=== PATIENT | female | born 1950 | race Caucasian/White ===

== ENCOUNTER 2021-04-07 15:22 | Emergency (ER) | payer OTHER ==
--- NOTE | 2021-04-07 17:00 | EDM.PDOC ---
ED HPI GENERAL MEDICAL PROBLEM - General Chief Complaint: Chest Pain Stated Complaint: CHEST PAIN STARTED YESTERDAY Time Seen by Provider: 04/07/21 16:45 Source of Information: Reports: Patient. Denies: Old Records History Limitations: Reports: Other (no old records) - History of Present Illness INITIAL COMMENTS - FREE TEXT/NARRATIVE: 70 yo female here with greater than 24 hrs of vague heaviness in her chest and some pain to the R posterior shoulder. Denies a hx of CAD or exertion. No SOB or nausea. Sx's less severe, but still present upon arrival. [place]. No nausea or diaphoresis. Not related to eating. No missed dosages of her meds. Today's BP is higher than her norm. Is a non-smoker. Onset: Gradual Onset Date: 04/06/21 Onset Time: 08:00 Duration: Day(s): (1.5), Waxing/Waning Location: Reports: Chest, Back Quality: Reports: Dull Severity: Mild Improves with: Reports: None Worsens with: Reports: None Context: Reports: Other (See HPI) Associated Symptoms: Reports: Chest Pain. Denies: Cough, Diaphoresis, Fever/Chills, Nausea/Vomiting, Shortness of Breath, Syncope Treatments [employer]: Reports: Other (see below) (none) Chest Pain Score (Numeric/FACES): 2 - Related Data Allergies Allergy/AdvReac Type Severity Reaction Status Date / Time amoxicillin Allergy Rash Verified 04/07/21 16:00 codeine Allergy Rash Verified 04/07/21 16:01 Home Meds: Home Meds Hydroxychloroquine [Plaquenil] 200 mg PO DAILY 04/07/21 [History] Losartan/Hydrochlorothiazide [Losartan-HCTZ 50-12.5 MG] 1 mg PO DAILY 04/07/21 [History] Past Medical History HEENT History: Reports: Impaired Vision Musculoskeletal History: Reports: Arthritis Social & Family History - Tobacco Use Tobacco Use Status *Q: Never Tobacco User - Caffeine Use Caffeine Use: Reports: Coffee - Alcohol Use Number of Drinks Per Day: 1 ED ROS GENERAL - Review of Systems Review Of Systems: See Below Constitutional: Reports: No Symptoms HEENT: Reports: No Symptoms Respiratory: Reports: No Symptoms Cardiovascular: Reports: No Symptoms GI/Abdominal: Reports: No Symptoms : Reports: No Symptoms Musculoskeletal: Reports: Back Pain (R upper) Skin: Reports: No Symptoms Neurological: Reports: No Symptoms Psychiatric: Reports: No Symptoms ED EXAM, GENERAL - Physical Exam Exam: See Below Exam Limited By: No Limitations General Appearance: Alert, WD/WN, No Apparent Distress Eye Exam: Right Eye: Other, Bilateral Eye: Normal Inspection Ears: Normal External Exam, Normal Canal, Hearing Grossly Normal Ear Exam: Bilateral Ear: Auricle Normal, Canal Normal Nose: Normal Inspection, No Blood Throat/Mouth: Normal Inspection, Normal Lips, Normal Oropharynx, Normal Voice, No Airway Compromise Head: Atraumatic, Normocephalic Neck: Normal Inspection, Tender Lateral (R post/lateral neck pain) Respiratory/Chest: No Respiratory Distress, Lungs Clear, Normal Breath Sounds, No Accessory Muscle Use, Chest Non-Tender Cardiovascular: Regular Rate, Rhythm, No Edema GI/Abdominal: Normal Bowel Sounds, Soft, Non-Tender, No Distention Back Exam: Normal Inspection, Other (tender on palpation between the R shoulder blade and the spine. ). No: CVA Tenderness (R), CVA Tenderness (L) Extremities: Normal Inspection, Normal Range of Motion, Non-Tender, No Pedal Edema Neurological: Alert, Oriented, CN II-XII Intact, Normal Cognition, No Motor/Sensory Deficits Psychiatric: Normal Affect, Normal Mood Skin Exam: Warm, Dry, Intact, Normal Color, No Rash #1 Interpretation EKG Date: 04/07/21 Time: 16:25 Rhythm: NSR Rate (Beats/Min): 63 [place]: Normal P-Wave: Present QRS: Normal ST-T: Normal QT: Normal Comparison: NA - No Prior EKG Course - Vital Signs Last Recorded V/S: Last Vital Signs Temp 36.2 C 04/07/21 16:15 Pulse 61 04/07/21 16:44 Resp 13 04/07/21 16:44 BP 156/73 H 04/07/21 16:44 Pulse Ox 98 04/07/21 16:44 - Orders/Labs/Meds Orders: Active Orders 24 hr Category Date Time Status Cardiac Monitoring [RC] .As Directed Care 04/07/21 16:10 Active EKG Documentation Completion [RC] ASDIRECTED Care 04/07/21 16:10 Active Chest 2V [CR] Stat Exams 04/07/21 17:00 Taken EKG 12 Lead [EK] Routine Ther 04/07/21 16:10 Ordered Labs: Laboratory Tests 04/07/21 04/07/21 Range/Units 15:51 15:51 D-Dimer, Quantitative 386.38 (0.0-500.0) ng/mL Troponin I < 0.017 (0.000-0.056) ng/mL - Radiology Interpretation Free Text/Narrative:: CXR-neg Departure - Departure Time of Disposition: 17:43 Disposition: Home, Self-Care 01 Condition: Good Clinical Impression: Nonspecific chest pain, Muscle pain Instructions: Nonspecific Chest Pain, Adult, [id number] Referrals: PCP,None [Primary Care Provider] - Forms: ED Department Discharge Additional Instructions: Take acetaminophen up to 1000 mg every 6 hrs for pain relief. Have someone massage Tr-Nettles or a similar product on the area between your right shoulder blade and your spine a couple times a day until the problem resolves and to the right side of the back of your neck. Continue your usual medications. Return as needed. Sepsis Event Note (ED) - Evaluation Sepsis Screening Result: No Definite Risk - Focused Exam Vital Signs: Vital Signs Temp Pulse Resp BP Pulse Ox 04/07/21 16:44 61 13 156/73 H 98 04/07/21 16:15 36.2 C 63 18 168/91 H 97 04/07/21 15:54 36.2 C 73 18 174/73 H 04/07/21 15:36 36.5 C 73 12 174/73 H 96 - My Orders Last 24 Hours: My Active Orders 04/07/21 16:10 Cardiac Monitoring [RC] .As Directed EKG Documentation Completion [RC] ASDIRECTED EKG 12 Lead [EK] Routine 04/07/21 17:00 Chest 2V [CR] Stat - Assessment/Plan Last 24 Hours: My Active Orders 04/07/21 16:10 Cardiac Monitoring [RC] .As Directed EKG Documentation Completion [RC] ASDIRECTED EKG 12 Lead [EK] Routine 04/07/21 17:00 Chest 2V [CR] Stat
--- NOTE | 2021-04-08 09:07 | CR ---
CHEST: 2 view CLINICAL HISTORY:Chest pain COMPARISON:None FINDINGS: The heart size, pulmonary vascularity and hilar structures are normal. No infiltrate effusion or pneumothorax is seen. IMPRESSION: No acute cardiopulmonary process.
== END 2021-04-07 17:56 | disposition home or self-care (01) ==
LOC: JP.ED 15:22
DX: R07.9 Chest pain, unspecified (principal); M54.2 Cervicalgia; M79.10 Myalgia, unspecified site; Z88.0 Allergy status to penicillin; Z88.5 Allergy status to narcotic agent; Z79.899 Other long term (current) drug therapy
CPT/HCPCS: 36415; 71046; 71046-26; 84484; 85379; 93005; 99285-25